=== PATIENT | male | born 2000 | race Caucasian/White ===

== ENCOUNTER 2022-07-08 13:48 | Outpatient (CLI) | payer OTHER ==
--- NOTE | 2022-07-08 15:30 | MRI Report ---
PROCEDURE: BRAIN W/WO INDICATIONS: HEADACHE CONTRAST: 6.5ml gadavist TECHNIQUE: Noncontrast axial T1 spin echo, axial T2 fast spin echo, sagittal and axial FLAIR, coronal T2 fast sp in echo, axial gradient echo, axial diffusion and ADC through the brain. After the administration of contrast, axial and coronal T1 spin echo with fat saturation through the brain. COMPARISON: None. FINDINGS: Image quality: Excellent. CSF spaces: Basal cisterns are patent. No extra-axial fluid collections. Ventricles are normal in size and shape. Brain: No midline shift. No intracranial bleeds or masses. No abnormal intracranial enhancement. There is cerebral volume loss for age. There is periventricular white matter chronic small vessel is chemic change. The brainstem appears normal. Diffusion-weighted images demonstrate no acute ischemi c insults. No chronic ischemic insults. Normal intravascular flow voids are present. Skull and face: Calvarial marrow is normal in signal. Orbits appear normal. Sinuses: The paranasal sinuses have mucosal thickening. IMPRESSION: Normal MRI brain without and with contrast. Reviewed by: Cecilio Chun on 07/08/2022 3:29 PM PST Approved by: Cecilio Chun on 07/08/2022 3:29 PM PST Station ID: [id number]
== END 2022-07-08 13:49 | disposition home or self-care (01) ==
LOC: DI 13:48
DX: G44.89 Other headache syndrome (principal)
CPT/HCPCS: 70553; A9585

== ENCOUNTER 2022-12-04 13:29 | Emergency (ER) | payer OTHER ==
[2022-12-04 13:41] VITALS: BP 137/76
--- NOTE | 2022-12-04 13:57 | ED Physician Documentation ---
History of Present Illness - Stated complaint Stated Complaint: CAT BITE - Chief complaint Chief Complaint: Wound - Additonal information Additional information: 22-year-old male presenting to the emergency department with cat bite to left h and. Occurred yesterday. Neighbors cat. Believes immunizations are up-to-date. Is active service [employer] and immunizations are up-to-date. Reports increasing swelling and pain today. Denies fevers or chills. Review of Systems Constitutional: denies: Fever Eyes: denies: Loss of vision, Decreased vision Ears: denies: Loss of hearing Nose: denies: Rhinorrhea / runny nose Throat: denies: Dental pain / toothache Cardiac: denies: Chest pain / pressure Respiratory: denies: Dyspnea GI: denies: Abdominal Pain : denies: Dysuria Skin: reports: Abrasion (s). denies: Rash Musculoskeletal: denies: Neck pain Neurologic: denies: Generalized weakness PD PAST MEDICAL HISTORY - Present Medications Home Medications: Ambulatory Orders Medication Instructions Recorded Confirmed Amox/Clav 875/125 [Augmentin] 1 tab PO Q12H #20 tablet 12/04/22 - Allergies Allergies/Adverse Reactions: Allergies Allergy/AdvReac Type Severity Reaction Status Date / Time No Known Drug Allergies Allergy Verified 12/04/22 13:41 PD ED PE NORMAL - Vitals Vital signs reviewed: Yes - General General: Alert and oriented X 3, No acute distress - HEENT HEENT: Atraumatic - Neck Neck: Supple, no meningeal sign - Respiratory Respiratory: No respiratory distress - Male Male : Deferred - Derm Derm: Other (There is area of erythema overlying the second and third knuckles as well as the dorsum of the left hand. There is full and complete flexion and extension with no pain with flexion or extension. There is some erythema and induration without fluctuance. ) Results - Vitals Vitals: Vital Signs - 24 hr 12/04/22 13:39 Temperature 36.8 C Heart Rate 78 Respiratory 16 Rate Blood Pressure 137/76 H O2 Saturation 100 Oxygen O2 Source Room air PD Medical Decision Making - ED course Complexity details: d/w patient ED course: Patient 22-year-old male presenting to the emergency department with cat bite to left hand. This occurred 1 day ago. He presents with area of swelling, induration without fluctuance on the dorsum of the left hand overlying the second and third digits. He is active duty [employer] and reports immunizations being up-to-date. He is able to flex and extend the fingers without difficulty. Normal capillary refill and two-point discrimination appreciated in the hand. [id number] ultrasonography demonstrates cobblestoning consistent with cellulitis without identified fore ign body, abnormal fluid collection, abscess or abnormal swelling or fluid around the extensor tendon sheaths. Will initiate course of Augmentin in the emergency department. Will encourage careful follow-up with primary care or return to the emergency department for any new or worsening symptoms or persistent symptoms that are not improved over the course of the next 48 to 72 hours. Departure - Departure Disposition: 01 Home, Self Care Clinical Impression: Cellulitis of hand Cat bite Qualifiers: Encounter type: initial encounter Qualified Code(s): W55.01XA - Bitten by cat, initial encounter Instructions: Bites Scratches Animal Prescriptions: Amox/Clav 875/125 [Augmentin] 1 tab PO Q12H #20 tablet Comments: Thank you for allowing us to care for you today [facility]. Prescription sent to [facility] in [place]. Today in the emergency department you were diagnosed with cat bite to your left hand with some associated soft tissue swelling and signs of infection known as cellulitis. You were started on a course of oral antibiotics. I will be discharging you with 7 more days of antibiotics to take at home. Please fill this prescription and take your next dose this evening. I recommend that you take your antibiotics with food. I also recommend increasing your intake and fiber full foods and natural probiotics while on antibiotics. Please do make a follow-up appoint with your primary care doctor soon as possible for medical recheck. If it anytime you have worsening symptoms or signs that are of concern for spreading infection or if you develop significant pain in the hand, particularly with flexion or extension of the hand or pain while making a fist it is importantly return to the emergency department for reevaluation.
[2022-12-04] MEDS ORDERED: AMOX/CLAV 875 MG/125 MG TABLET PO STA (14:18)
== END 2022-12-04 14:56 | disposition home or self-care (01) ==
LOC: ED 13:29
DX: L03.114 Cellulitis of left upper limb (principal); W55.01XA Bitten by cat, initial encounter
CPT/HCPCS: 99282; 99283; A9270